=== PATIENT | male | born 1985 | race Caucasian/White ===

== ENCOUNTER 2020-07-21 08:45 | Emergency (ER) | payer SELFPAY ==
[2020-07-21] MEDS ORDERED: CEFTRIAXONE INJ 1000 MG VIAL IV ONE (09:10)
[2020-07-21] MEDS ORDERED: KETOROLAC TROMETHAMINE INJ/PF 30 MG/1 ML SDV IV ONE (09:11)
--- NOTE | 2020-07-21 09:17 | ER Document Report ---
ED General - General Chief Complaint: Facial Swelling Stated Complaint: FACIAL SWELLING Time Seen by Provider: 07/21/20 09:03 TRAVEL OUTSIDE OF THE [place] IN LAST 30 DAYS: No - HPI Notes: Chief complaint: Facial swelling and tooth decay History of present illness: 35-year-old male longstanding history of dental and periodontal disease and has not seen a dentist on a number of years now presenting with swelling of the left cheek area over the last several days. Dull aching in this area. No fever, chills, nausea or vomiting. He has been taking [id number] ibuprofen which is been relieving his discomfort. He came in today presently because of increasing pressure and swelling in the cheek area. No difficulty breathing, swallowing or speaking. Patient takes no regular medications. He has no history of diabetes. Has not seen a physician in a number years. He has no known allergies. He is a 1 pack/day smoker. - Related Data Allergies/Adverse Reactions: No Known Allergies Allergy (Unverified 07/21/20 09:01) Past Medical History - General Information source: Patient, [facility] Records - Social History Smoking Status: Current Every Day Smoker Chew tobacco use (# tins/day): No Frequency of alcohol use: Social Drug Abuse: None Occupation: field installer Lives with: Family Family History: Reviewed & Not Pertinent - Medical History Medical History: Negative Past Surgical History: Reports: None - Immunizations Hx Diphtheria, Pertussis, Tetanus Vaccination: Yes Review of Systems - Review of Systems Notes: Constitutional: Negative for fever. HENT: Negative for sore throat. Eyes: Negative for visual changes. Cardiovascular: Negative for chest pain. Respiratory: Negative for shortness of breath. Gastrointestinal: Negative for abdominal pain, vomiting or diarrhea. Genitourinary: Negative for dysuria. Musculoskeletal: Negative for back pain. Skin: Negative for rash. Neurological: Negative for headaches, weakness or numbness. 10 point ROS negative except as marked above and in HPI. Physical Exam - Vital signs Vitals: Temp Pulse Resp BP Pulse Ox 98.3 F 72 16 132/80 H 99 07/21/20 08:50 07/21/20 08:50 07/21/20 08:50 07/21/20 08:50 07/21/20 08:50 - Notes Notes: GENERAL: Well-developed well-nourished male patient of approximately stated age appearing in no acute distress. SKIN: Good turgor no rashes. HEAD: Normocephalic atraumatic. Mild soft tissue swelling over left cheek area with some tenderness to palpation. EYES: PERRLA. EOMI. Conjunctivae and sclerae clear. EARS: CANALS AND TMS CLEAR. NOSE: CLEAR. MOUTH: Moist mucosa. Poor dentition with multiple deeply decayed upper teeth on the left side. There is some associated swelling and retraction of the gums. No stridor or edema. No drooling. Throat: Clear. NECK: Supple. No masses or thyromegaly. Mild left-sided anterior cervical adenopathy without tenderness. Carotids 2+ without bruits. No JVD. BACK: Symmetrical without tenderness. CHEST: Respirations unlabored. Breath sounds clear and symmetrical. HEART: Regular rhythm. No murmur gallop or rub. ABDOMEN: Soft nontender without masses, organomegaly or rebound. Bowel sounds normally active. No bruits. GENITALIA: Deferred. EXTREMITIES: No edema. No calf tenderness. Cap refill less than 1.5 seconds. Dorsalis pedis and posterior tibial pulses 3+ and symmetrical. NEUROLOGICAL: GCS 15. Alert and oriented x3. Normal gait. Fluent speech. Cranial nerves II through XII intact. Sensorimotor and cerebellar normal. Normal tone. PSYCHIATRIC: Appropriate affect. Course - Re-evaluation Re-evalutation: 07/21/20 09:17 IV Rocephin. IV Toradol. Airway is stable and I will refer him to dental provider outpatient. We will start him on oral amoxicillin given work note for 3 days. Reviewed red flag symptoms for early return to emergency department. Findings, clinical impression and plan of treatment have been discussed with patient/family. Understanding of current findings and recommendations has been acknowledged by them and there is agreement regarding disposition and follow-up. - Vital Signs Vital signs: Temp Pulse Resp BP Pulse Ox 98.3 F 72 16 132/80 H 99 07/21/20 08:50 07/21/20 08:50 07/21/20 08:50 07/21/20 08:50 07/21/20 08:50 Discharge - Discharge Clinical Impression: Facial cellulitis odontogenic Condition: Stable Disposition: HOME, SELF-CARE Additional Instructions: Dental Infection or Abscess You have an infection, perhaps an abscess (pus formation) of the gum around one of your teeth, which is probably decayed. If there is an abscess, it may drain on its own or it may need to be opened or lanced. Severe swelling or drainage around a tooth usually means a deep dental abscess which usually requires evaluation and treatment by a dentist or oral surgeon. Antibiotics may be prescribed while awaiting dental treatment. If you develop high fever with chills, worsening pain, or increasing swelling in the area, see a dentist or oral surgeon immediately or return to the Emergency Department immediately. Continue ibuprofen as needed. Take prescribed antibiotic medication. Return to the emergency department immediately if you develop difficulty breathing or swallowing. You have been provided a work note for the next 3 days. You have been provided information regarding a dental clinic and you should contact them for follow-up within the next 24 hours. Prescriptions: Amoxicillin 1 tab PO TID #30 tab Forms: Smoking Cessation Education, Return to Work Referrals: [facility] [Provider Group] - Follow up as needed
[2020-07-21 10:40] VITALS: BP 108/65
== END 2020-07-21 10:39 | disposition home or self-care (01) ==
LOC: ER 08:45
DX: K12.2 Cellulitis and abscess of mouth (principal); K05.219 Aggressive periodontitis, localized, unspecified severity; R22.0 Localized swelling, mass and lump, head; F17.210 Nicotine dependence, cigarettes, uncomplicated
CPT/HCPCS: 99284; 96375; 96365; J1885; J0696